=== PATIENT | female | born 2000 | race Caucasian/White ===

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

== ENCOUNTER 2019-02-25 23:53 | Emergency (ER) | payer MEDICAID ==
[~2019-02-25] VITALS: Ht 162.6 cm; Wt 107.2 kg
[~2019-02-25 23:53] MED LIST: PREN1TAB49 PO
[2019-02-25 23:55] VITALS: BP 165/77; PULSE 101; RESP 18; Ht 162.6 cm; Wt 107.2 kg
--- NOTE | 2019-02-26 06:14 | ERD ---
ER Documentation Chief Complaint Chief Complaint VB x2 days, worse today w/ cramping. no n/v/d/urinary symptoms HPI 18-year-old female presents for vaginal bleeding x2 days. She is currently about 3 months . She states she is going through a few pads per day. She does darkness in her urine. Denies fevers or chills. She does have associated pelvic pain that is described as a cramping type of pain. Pain is 5 out of 10. No other modifying factors noted. No treatments tried at home. Denies chest pain or shortness of breath. Denies nausea or vomiting. ROS All systems reviewed and are negative except as per history of present illness. Medications Home Meds Reported Medications Vits W-Ca,Fe,Fa(<1MG) () 1 Tab Tablet, 1 TAB PO DAILY 12/09/12 Allergies Allergies: Coded Allergies: No Known Allergy (Unverified , 12/09/12) PMhx/Soc Medical and Surgical Hx: pt denies Medical Hx, pt denies Surgical Hx History of Surgery: No Anesthesia Reaction: No Hx Neurological Disorder: No Hx Respiratory Disorders: No Hx Cardiac Disorders: No Hx Psychiatric Problems: No Hx Miscellaneous Medical Probl: No Hx Alcohol Use: No Hx Substance Use: No Hx Tobacco Use: No Smoking Status: Never smoker FmHx Family History: No coronary disease Physical Exam Vitals Vital Signs Date Temp Pulse Resp B/P (MAP) Pulse Ox O2 O2 Flow FiO2 Time Delivery Rate 02/25/19 99.4 101 18 165/77 100 23:55 (106) Physical Exam Const: No acute distress Resp: Clear to auscultation bilaterally Cardio: Regular rate and rhythm, no murmurs Abd: Soft, non distended. Normal bowel sounds, no tenderness to palpation, no McBurney's point tenderness, no Motley sign, no rebound or guarding noted Skin: No petechiae or rashes Back: No midline or flank tenderness Ext: No cyanosis, or edema Neur: Awake and alert Psych: Normal Mood and Affect Result Diagram: 02/26/19 0419 Results 24 hrs Laboratory Tests Test 02/26/19 04:19 White Blood Count 9.7 10^3/ul Red Blood Count 4.53 10^6/ul Hemoglobin 13.4 g/dl Hematocrit 40.8 % Mean Corpuscular Volume 90.1 fl Mean Corpuscular Hemoglobin 29.6 pg Mean Corpuscular Hemoglobin Concent 32.8 g/dl Red Cell Distribution Width 12.9 % Platelet Count 346 10^3/UL Mean Platelet Volume 9.1 fl Immature Granulocytes % 0.400 % Neutrophils % 67.7 % Lymphocytes % 21.8 % Monocytes % 6.9 % Eosinophils % 2.8 % Basophils % 0.4 % Nucleated Red Blood Cells % 0.0 /100WBC Immature Granulocytes # 0.040 10^3/ul Neutrophils # 6.6 10^3/ul Lymphocytes # 2.1 10^3/ul Monocytes # 0.7 10^3/ul Eosinophils # 0.3 10^3/ul Basophils # 0.0 10^3/ul Nucleated Red Blood Cells # 0.0 10^3/ul Urine Color YELLOW Urine Clarity CLEAR Urine pH 5.0 Urine Specific [place] 1.025 Urine Ketones NEGATIVE mg/dL Urine Nitrite NEGATIVE mg/dL Urine Bilirubin NEGATIVE mg/dL Urine Urobilinogen NEGATIVE mg/dL Urine Leukocyte Esterase NEGATIVE Roberto/ul Urine Microscopic RBC 1 /HPF Urine Microscopic WBC 1 /HPF Urine Squamous Epithelial Cells FEW /HPF Urine Mucus FEW /HPF Urine Hemoglobin 1+ mg/dL Urine Glucose NEGATIVE mg/dL Urine Total Protein NEGATIVE mg/dl Beta HCG, Quantitative 30635.0 mIU/ml Procedures/MDM Medical Decision Making: Differential diagnosis includes but not limited to spontaneous , ovarian cyst, uterine fibroid. Patient appeared well on physical examination. CBC showed no anemia, no elevated WBC to suggest systemic infection. UA did not indicate infection Beta hCG level was over 50,000 Pelvic ultrasound showed single live intrauterine about 12 weeks, there is a right ovarian cyst. heart rate noted to be 156. Patient advised that she will need close follow-up with [facility]. Patient advised to follow up with PCP in 1-2 days. Patient advised to return to ED for new or worsening symptoms. Patient stable on discharge from the ED. Disclaimer: Inadvertent spelling and grammatical errors are likely due to EHR/dictation software use and do not reflect on the overall quality of patient care. Also, please note that the electronic time recorded on this note does not necessarily reflect the actual time of the patient encounter. Departure Diagnosis: Primary Impression: First trimester bleeding Condition: Fair Patient Instructions: Vaginal Bleed in Referrals: [facility] YOU HAVE RECEIVED A MEDICAL SCREENING EXAM AND THE RESULTS INDICATE THAT YOU DO NOT HAVE A CONDITION THAT REQUIRES URGENT TREATMENT IN THE EMERGENCY DEPARTMENT. FURTHER EVALUATION AND TREATMENT OF YOUR CONDITION CAN WAIT UNTIL YOU ARE SEEN IN YOUR DOCTORS OFFICE WITHIN THE NEXT 1-2 DAYS. IT IS YOUR RESPONSIBILITY TO MAKE AN APPOINTMENT FOR FOLOW-UP CARE. IF YOU HAVE A PRIMARY DOCTOR --you should call your primary doctor and schedule an appointment IF YOU DO NOT HAVE A PRIMARY DOCTOR YOU CAN CALL OUR PHYSICIAN REFERRAL HOTLINE AT IF YOU CAN NOT AFFORD TO SEE A PHYSICIAN YOU CAN CHOSE FROM THE FOLLOWING [facility] [id number] [facility]. [facility] [address] [facility] [facility] [address] [facility] [facility] [address] [facility]. [facility] [address] [facility]. [facility]. [address] Additional Instructions: Call your primary care doctor TOMORROW for an appointment during the next 1-2 days.See the doctor sooner or return here if your condition worsens before your appointment time. Follow up with Equipment Scheduler MIKAEL ZAIDI DO February 26, 2019 06:14
== END 2019-02-26 06:18 | disposition home or self-care (01) ==
LOC: FTE 23:53
DX: O20.9 Hemorrhage in early pregnancy, unspecified (principal); R10.2 Pelvic and perineal pain; Z3A.12 12 weeks gestation of pregnancy
CPT/HCPCS: 36415; 76801; 81001; 84702; 85025; 86900; 86901; Z7502

== ENCOUNTER 2019-08-26 22:41 | Inpatient (IN) | payer MEDICAID ==
[~2019-08-26] VITALS: Ht 162.6 cm; Wt 115.0 kg
[~2019-08-26 22:41] MED LIST changes: +DOCU-144 PO; +IBUP-1542 PO
[2019-08-26 23:04] VITALS: BP 131/83; PULSE 71; RESP 18; Ht 162.6 cm; Wt 115.0 kg
[2019-08-27] MEDS ORDERED: LACTATED RINGER'S 1,000 ML IV SCH (00:31)
[2019-08-27] MEDS ORDERED: METHYLERGONOVINE 0.2 MG INJ IM PRN ×3 (01:00→15:30)
[2019-08-27] MEDS ORDERED: LIDOCAINE 1% (MPF) 30 ML INJ INJ PRN ×2 (01:00→09:00)
[2019-08-27] MEDS ORDERED: MINERAL OIL LIGHT 10 ML VIAL TOP PRN ×2 (01:00→09:00)
[2019-08-27] MEDS ORDERED: OXYTOCIN 30 UNITS/LR 500 ML IV PRN ×3 (01:00→15:30)
[2019-08-27] MEDS ORDERED: IBUPROFEN 600 MG TAB PO PRN (01:00)
[2019-08-27] MEDS ORDERED: AMPICILLIN 2 GM/NS (PMX) 100 ML IV ONE (01:00)
[2019-08-27] MEDS ORDERED: OXYTOCIN 30 UNITS/LR 500 ML IV SCH ×6 (01:00→15:02)
[2019-08-27] MEDS ORDERED: CARBOPROST 250 MCG INJ IM PRN ×3 (01:00→15:30)
[2019-08-27] MEDS ORDERED: MISOPROSTOL 200 MCG TAB PR PRN ×3 (01:00→15:30)
[2019-08-27] MEDS: BUTORPHANOL 2 MG INJ IV PRN ×2 (02:44→05:01)
[2019-08-27] MEDS ORDERED: AMPICILLIN 1 GM/NS (PMX) 50 ML IV SCH (05:00)
[2019-08-27] MEDS: LACTATED RINGER'S 1,000 ML IV PRN ×2 (08:43→09:03)
[2019-08-27] MEDS ORDERED: FENTAnyl 2MCG/ML-ROPIV 0.2% 100 ML ONE (09:40)
[2019-08-27] MEDS ORDERED: FENTAnyl 2MCG/ML-ROPIV 0.2% 100 ML BAG EPI SCH (10:00)
[2019-08-27] MEDS ORDERED: NALOXONE (0.4 MG/ML) INJ IV PRN (10:00)
[2019-08-27] MEDS: LACTATED RINGER'S 1,000 ML IV SCH ×2 (13:04→18:55)
[2019-08-27] MEDS ORDERED: morphine 10 MG INJ IV ONE (15:00)
[2019-08-27] MEDS ORDERED: ZOLPIDEM 5 MG TAB PO PRN (15:30)
[2019-08-27] MEDS ORDERED: BENZOCAINE 20% 56 ML SPRAY TOP PRN (15:30)
[2019-08-27] MEDS ORDERED: DIPHENHYDRAMINE 25 MG CAP PO PRN (15:30)
[2019-08-27] MEDS ORDERED: NACL 0.9% 3 ML SYG IV SCH (15:30)
[2019-08-27] MEDS ORDERED: WITCH HAZEL/GLYCERIN PAD PR PRN (15:30)
[2019-08-27] MEDS ORDERED: LANOLIN HPA 1 PKT TOP PRN (15:30)
[2019-08-27] MEDS ORDERED: oxyCODONE 5 MG TAB PO PRN ×2 (15:30)
[2019-08-27] MEDS ORDERED: ONDANSETRON 4 MG INJ IV PRN (15:30)
[2019-08-27] MEDS ORDERED: MAGNESIUM HYDROXIDE 30ML CUP PO PRN (15:30)
[2019-08-27 16:50] VITALS: BP 129/70; PULSE 83; RESP 18
[2019-08-27] MEDS: ACETAMINOPHEN 500 MG TAB PO SCH ×2 (17:48→23:30)
[2019-08-27] MEDS: IBUPROFEN 600 MG TAB PO SCH (17:55)
[2019-08-27 20:30] VITALS: BP 131/60; PULSE 74; RESP 18
[2019-08-28] MEDS: IBUPROFEN 600 MG TAB PO SCH ×5 (00:33→23:41)
[2019-08-28] MEDS: LACTATED RINGER'S 1,000 ML IV SCH (00:36)
[2019-08-28 04:08] VITALS: BP 110/68; PULSE 72; RESP 18
[2019-08-28] MEDS: ACETAMINOPHEN 500 MG TAB PO SCH ×3 (07:30→23:30)
[2019-08-28 08:00] VITALS: BP 108/51; PULSE 75; RESP 16
[2019-08-28] MEDS: SENNA/DOCUSATE NA (8.6MG/50MG) TAB PO PRN (13:04)
[2019-08-28 15:40] VITALS: BP 111/68; PULSE 68; RESP 16
[2019-08-28 16:00] VITALS: BP 111/68; PULSE 68; RESP 16
[2019-08-28 20:00] VITALS: BP 126/69; PULSE 77; RESP 18
[2019-08-29 04:00] VITALS: BP 107/59; PULSE 73; RESP 17
[2019-08-29] MEDS: IBUPROFEN 600 MG TAB PO SCH ×2 (06:03→11:59)
[2019-08-29] MEDS: ACETAMINOPHEN 500 MG TAB PO SCH ×2 (07:30→15:30)
[2019-08-29 08:00] VITALS: BP 115/67; PULSE 69; RESP 16
[2019-08-29] MEDS ORDERED: MEASLES,MUMPS,RUBELLA VACCINE INJ SC* ONE (09:00)
[2019-08-29] MEDS ORDERED: DIPHTH/TET/ACEL PERTUSS (ADULT) 0.5 ML VIAL IM* ONE (09:00)
[2019-08-29] MEDS: SENNA/DOCUSATE NA (8.6MG/50MG) TAB PO PRN (11:59)
[2019-08-29 15:59] VITALS: BP 128/59; PULSE 76; RESP 16
== END 2019-08-29 18:20 | disposition home or self-care (01) | DRG 807 ==
LOC: OBT 22:41 → L-D 22:43 → OBT 08-27 00:25 → L-D 08-27 00:25 → PP1 08-27 17:10
PROVIDERS: ADMIT Obstetrics & Gynecology Obstetrics; ATTEND Obstetrics & Gynecology
PROC: 10E0XZZ Delivery of Products of Conception, External Approach (ICD-10-PCS; principal; 2019-08-27)
DX: O99.214 Obesity complicating childbirth (principal); Z37.0 Single live birth; Z3A.39 39 weeks gestation of pregnancy; Z86.79 Personal history of other diseases of the circulatory system; Z86.59 Personal history of other mental and behavioral disorders
CPT/HCPCS: 62322; 80307; 85025; 85610; 85730; 86592; 86850; 86900; 86901; 87340; 88307; 99464; G0463; J0290; J0595; J2270; J2590; J3010; J7120